=== PATIENT | female | born 1985 | race Caucasian/White ===

== ENCOUNTER 2023-01-21 09:29 | Outpatient (OUT) | payer BC, SELFPAY ==
[2023-01-21 10:03] LABS: Basophils Absolute Auto 0.1 10^3/uL (0.0-0.1); Basophils Percent Auto 0.8 % (0.2-2.0); Eosinophils Absolute Auto 0.1 10^3/uL (0.0-0.7); Eosinophils Percent Auto 1.8 % (0.9-7.0); Hematocrit 40.2 % (36.0-48.0); Hemoglobin 13.7 g/dL (12.0-16.0); Immature Granulocytes Abs Auto 0.01 10^3/uL (0.00-0.03); Immature Granulocytes Pct Auto 0.2 % (0.0-0.5); Lymphocytes Absolute Auto 2.8 10^3/uL (1.2-3.8); Lymphocytes Percent Auto 45.6 % (20.5-60.0); Mean Corpuscular HGB Conc 34.1 g/dL (29.9-35.2); Mean Corpuscular Hemoglobin 30.2 pg (26.7-34.0); Mean Corpuscular Volume 88.7 fL (81.0-99.0); Mean Platelet Volume 9.5 fL (9.5-13.5); Monocytes Absolute Auto 0.4 10^3/uL (0.3-0.8); Neutrophils Absolute Auto 2.7 10^3/uL (1.4-6.5); Neutrophils Percent Auto 44.6 % (43.0-75.0); Platelet Count 297 10^3/uL (150-450); Red Blood Count 4.53 10^6/uL (4.20-5.40); Red Cell Distribution Width 12.4 % (11.0-15.0); White Blood Count 6.1 10^3/uL (4.0-11.0)
[2023-01-21 10:25] LABS: Estimated Average Glucose 100 mg/dL; Glycohemoglobin A1C 5.1 % (4.5-6.2)
[2023-01-21 10:49] LABS: Alanine Aminotransferase 21 U/L (14-59); Albumin Globulin Ratio 1.1; Alkaline Phosphatase 68 U/L (46-116); Anion Gap 12.4; Aspartate Amino Transferase 15 U/L (15-37); BUN Creatinine Ratio 20.5; Bilirubin Total 0.6 mg/dL (0.2-1.0); Calcium 9.2 mg/dL (8.5-10.1); Carbon Dioxide 29.7 mmol/L (21.0-32.0); Chloride 102 mmol/L (98-107); Chol HDL Ratio 2.7; Cholesterol 213 mg/dL (<=200); Estimated GFR (African America >60 (>=60); Estimated GFR (Non-African Ame >60 (>=60); Globulin 3.7 g/dL; Glucose 89 mg/dL (74-106); HDL Cholesterol 78 mg/dL (40-60); Potassium 4.1 mmol/L (3.5-5.1); Sodium 140 mmol/L (136-145); Thyroid Stimulating Hormone 2.088 uIU/mL (0.358-3.740); Total Protein 7.7 g/dL (6.4-8.2); Triglycerides 37 mg/dL (<=150); VLDL CHOLESTEROL 7.4 mg/dL
== END 2023-01-21 09:30 | disposition home or self-care (01) ==
LOC: LAB 09:40
PROVIDERS: PCP Family Medicine; Visit Provider Obstetrics & Gynecology
DX: Z00.00 Encounter for general adult medical examination without abnormal findings (principal)
CPT/HCPCS: 36415; 80053; 80061; 83036; 84443; 85025

== ENCOUNTER 2025-02-10 15:07 | Outpatient (OUT) | payer BC, SELFPAY ==
--- OUTSIDE RECORDS SUMMARY | 2025-02-08 05:29 | XMS_ITS | Continuity of Care Document ---
Author Organization [facility] Address [address] [place] [address] Phone Care Team Providers Care Letter Of Credit Clerk Name Role Phone Shae Lora MD Primary Care Provider Shae Lora MD Attending Provider Care Teams Patient Care Team Team Status: Active Member Role/Relationship Status Dates Shae Lora MD Primary Care Provider Active Patient Care Team Team Status: Inactive Member Role/Relationship Status Dates Shae Lora MD Primary Care Provider Active Start: February 08, 2025 End: February 08, 2025Shae Lora MDAttending ProviderActiveStart: February 08, 2025 End: February 08, 2025 Chief Complaint and Reason for Visit Chief Complaint Admit Date Back Pain February 08, 2025 8 :47am Reason for Visit Admit Date Left-sided chest pain February 08, 2025 8:47am Lumbar pain February 08, 2025 8 :47am Right medial knee pain February 08 8:47am Wellness examination February 08, 2025 8:47am Social History Smoking Status Status Start Date End Date Date of Observa tion Never smoked tobacco (finding) October 08, 2023 11:40am Observation Status Observation Response Date of Response Legal Sex [facility] (finding) [facility] 1984 Problems Active Problems Problem Diagnosis/Recorded Date Onset Date Stat us Attention deficit disorder (ADD) in adult October 07 11:52am Unknown Active Left-sided chest pain February 08, 2025 9:22am Unknow n Active Right medial knee pain February 08, 2025 9:21am Unkno wn Active Hearing loss October 08, 2023 11:54am Unknown Acti ve Wellness examination February 08, 2025 9:16am Unknown Active Lumbar pain February 08, 2025 9:19am Unknown Ac tive Medications Medication Status Dose Units Route Directions Qty Days Refills S tart Date Stop Date End Date Reason(s) Instructions Adherence Dextroamphetamine-Amphetamin e (Adderall Xr) 5 mg capsule,extended release 24hr Discontinued 5 MG PO Daily 30 30 0 October 08, 2023 March 10, 2024 11:51amAttention deficit disorder (ADD) in adultMupirocin 2 % izghaobfPxlyptuunzkl1LOKIZCUBAMDTVYuqog dailyMarch 03, 2024 1:00amOctfrankfort regional medical center 2024 9:00amFreeTextSi application Externally Twice a day; Note: Source Status: Start; Refills: 0; Qty: 22 Gram; Provider: Guido Kaufman EAtomoxetine (Strattera) 40 mg pazugoyXmrfswdluyms03UQFWFnuff367Ldhnwvjw 27th, 2024 1:00am June 28, 2024 12:51pm Vital Signs Vital Reading Result Reference Range Collection Date/Time Height 60 [in_i] February 08, 2025 8:73oyErhddh46.16 [facility] 20[facility] 8:55amHeart Rate95 /uhg23-907Vslfrpl 2024 8:55amBP Ouakvcpb855 mm[Hg]100-140[facility] 2024 8:55amBP Oncakiphl57 mm[Hg]60-100[facility] 2024 8:55amBMI (Body Mass Index)22.4 kg/d8Nuimqxf 2024 8:55am Advance Directives Advance Directive Response Recorded Date/ Time Advance Directives No February 3:14pm Insurance Providers Guarantor Anita Welsh Address [address] [place] [address]Ufsbtkc Info.Home Phone: Coverage Status Update:2025 Payer Group Member ID Coverage Type Subscriber Relationship to Subscriber Effective Date Expiration Date MMO Id: [id number] A Neill Id: [id number] [address] [place] [address] Home Phone: Email: [email or web address] General Hospital [id number] A Blaise Id: [id number] [address] [place] [address] Home Phone: Email: [email or web address] [employer] Ins [employer] Id: [id number] A Blaise Id: [id number] [address] [place] [address] Home Phone: Email: [email or web address] [facility] Id: [id number] A Blaise Id: [id number] [address] [place] [address] Home Phone: Email: [email or web address] For Children - PhiladelphiafHealweather[facility] [email or web address] A Blaise Id: [id number] [address] [place] [address] Home Phone: Email: [email or web address] Encounters Encounter Location(s) Arrival/Admit Date Discharge/Departure Date Discharge/Departure Disposition Provider(s) Departed Physician/ Provider Office Visit -[facility] February 08, 2025 8:47am February 08, 2025 9:27am Discharged to home care or self care (routine discharge) Shae Lora MD Recent Diagnosis Onset Date Admit Date Left-sided chest pain Unknown February 082024 8:47am Lumbar pain Unknown February 08 8:47am Right medial knee pain Unknown January 132024 8:47am Wellness examination Unknown January 8:47am Assessments Diagnosis Onset Date Resolution Status Admit Date Left-sided chest pain acuteOctober 2024 8:47amLumbar painacuteOctober 2024 8:47amRight medial knee painacuteOctober 2024 8:47amWellness examinationacuteOctober 2024 8:47am Plan of Treatment Future Tests Future scheduled test information is unavailable Pending Tests Test Name Ordered Date Scheduled Date ECG 12 lead ECG February 08, 2025 9:22am E[facility] echo transthoracicOctober 2024 9:22amComprehensive Metabolic Panel February 08, 2025 9:16amXR knee RT 4V*February 08, 2025 9:20amXR lumbar spine 2-3V*February 08, 2025 9:18am Future Visits Future appointment information is unavailable Future Procedures Procedure Name Ordered Date Scheduled Date Complete Blood Count Auto Diff February 08 9:16am Lipid PanelOctober 2024 9:16am Future Medications Future medication information is unavailable Patient Instructions Instruction Admit Date Low back pain in adults February 08 8:47am
--- OUTSIDE RECORDS SUMMARY | 2025-02-10 15:13 | XMS_ITS | Clinical Summary ---
Author Organization [facility] Address [id number] [address] [place] [address] Care Team Providers Care Records Coordinator Name Role Phone Shae Lora MD Primary Care Provider Allergies Active AllergyReactionsCriticalityNoted UpztSvdfyzluQhmmheqmwkt14/06/2022 Medications MedicationSigDispense QuantityRefillsLast FilledStart DateEnd DateStatus PNV no.95/ferrous fum/folic ac ( ORAL) Take 1 tablet by mouth daily.Active dextroamphetamine-amphetamine (ADDERALL) 5 mg tablet Take 5 mg by mouth in the morning.Active promethazine (PHENERGAN) 12.5 mg tablet Take 12.5 mg by mouth every 4 (four) hours as needed for nausea or vomiting. Active Active Problems No known active problems Family History Medical HistoryRelationNameCommentsAlcohol abuseFatherArthritisFatherAsthma FatherColon cancerFatherDiabetesFatherHeart diseasePaternal GrandfatherColon cancerPaternal GrandmotherRelationNameStatusCommentsFatherPaternal Grandfather Paternal Grandmother Social History Tobacco UseTypesPacks/DayYears UsedDateSmoking Tobacco: NeverSmokeless Tobacco: NeverAlcohol UseStandard Drinks/WeekCommentsNot Currently0 (1 standard drink = 0.6 oz pure alcohol)CommentsNoSex and Gender InformationValueDate RecordedSex Assigned at BirthNot on fileLegal FhfXyfkkx03/12/2022 2:33 PM EDT Gender IdentityNot on fileSexual OrientationNot on file Last Filed Vital Signs Vital SignReadingTime TakenCommentsBlood Vcjjnopb763/5907/03/2022 11:43 AM EDT Arhyz4019/03/2022 11:43 AM EDTTemperature--Respiratory Rate--Oxygen Saturation-- Inhaled Oxygen Concentration--Cvrkro72.8 kg (120 lb 13 oz)10/23/2021 11:43 AM JGKBlufdp546.4 cm (5')10/23/2021 11:43 AM EDTBody Mass Index23.5907 11:43 AM EDT Plan of Treatment Health MaintenanceDue DateLast DoneCommentsDepression Aewoeebbb17/15/1997Tobacco Qwfqlzgse94/15/1997Adult BMI Xwsolgdml46/15/2003DTaP,Tdap and Td Vaccines (1 - Tdap)02/27/2004Pap Smear2006Influenza Xijbwgs6112/13/2024 Medical Devices Not on file Insurance Care Teams Team MemberRelationshipSpecialtyStart DateEnd Date Shae Lora MD [facility] [place] [address] PCP - GeneralFamily Medicine10/23/21
--- OUTSIDE RECORDS SUMMARY | 2025-02-10 15:13 | XMS_ITS | Clinical Summary ---
Author Organization [facility] Address [address] [facility] [place] [address] Care Team Providers Care Courier Driver Name Role Phone Shae Lora MD Primary Care Provider [phone] Social History Tobacco UseTypesPacks/DayYears UsedDateSmoking Tobacco: Never Assessed CommentsUnknownSex and Gender InformationValueDate RecordedSex Assigned at Not on fileLegal IgsJxowdl03/01/2023 8:34 PM EDTGender IdentityNot on fileSexual OrientationNot on file Last Filed Vital Signs Vital SignReadingTime TakenCommentsBlood Dbarvsex718/6004/10/2022 12:00 PM EST Pulse--Temperature--Respiratory Rate--Oxygen Saturation--Inhaled Oxygen Concentration--Yfctce96.9 kg (121 lb 1.9 oz)04/10/2022 12:00 PM GKYJgodwj483.4 cm (5')04/10/2022 12:00 PM ESTBody Mass Index23.6504/10/2022 12:00 PM EST Plan of Treatment DateTypeDepartmentCare Team (Latest Contact Info)Ifnodjknvci21/04/2025 11:30 AM ESTProcedure Visit [facility] [place] [facility] [address] [phone] Juan Francisco Melgoza DO [address] [place], [place] [id number] Insurance * Guarantor: Anita Welsh AAccount TypeRelation to PatientDate of BirthPhone Billing AddressPersonal/JuojvxBeyi[address] [place] [address] Care Teams Team MemberRelationshipSpecialtyStart DateEnd Date Shae Lora MD PCP - GeneralFamily Medicine01/12/24
--- NOTE | 2025-02-10 15:19 | XR_ITS ---
The [place] [id number] Patient Name: DALILA LAFLEUR MRN: [id number] date: 1985 Sex: F Assigned Patient [facility] Current Patient Location: CARD Accession/Order Number: [id number] Exam Date: 02/10/2025 15:30 Report Date: 02/11/2025 10:32 At the request of: MANOLO RAYO MD Procedure: XR knee RT 4V LUMBAR SPINE - 2 views COMPARISON: None CLINICAL DATA: Chronic low back and SI joint pain, without injury. AP and lateral standing views were obtained. There is dextroscoliotic curvature. There is approximately 3 mm of anterolisthesis of L4 and L5. No acute fractures are identified. There is minor disc space narrowing towards the right at L3-4 and L4-5. There is mild lower lumbar facet hypertrophy. The SI joints are intact and show mild sclerosis. No paraspinal soft tissue abnormalities are visualized. XR/XR knee RT 4V IMPRESSION: SCOLIOSIS AND MINOR DEGENERATIVE CHANGES. RIGHT KNEE - 4 views COMPARISON: None CLINICAL DATA: Medial right knee pain when ambulating over the past month. No injury. Weightbearing AP, lateral, tunnel and patellar views were obtained. There is no acute fracture or dislocation. No patellar subluxation is seen. There is minimal medial tibiofemoral joint compartment narrowing. No hypertrophy is visualized. There is no knee effusion or focal soft tissue swelling. IMPRESSION: NO ACUTE BONY FINDINGS. Impression dictated by: Parisa Sanderson M.D. 02/11/2025 10:32 AM Dictation Location: [place] [address] Electronically authenticated by: [id number] Y Date: 02/11/2025 10:32
--- NOTE | 2025-02-10 15:20 | XR_ITS ---
[facility] [place] [id number] Patient Name: DALILA LAFLEUR MRN: [id number] date: 1985 Sex: F Assigned Patient Location: [facility] Current Patient Location: CARD Accession/Order Number: [id number] Exam Date: 02/10/2025 15:30 Report Date: 02/11/2025 10:32 At the request of: MANOLO RAYO MD Procedure: XR knee RT 4V LUMBAR SPINE - 2 views COMPARISON: None CLINICAL DATA: Chronic low back and SI joint pain, without injury. AP and lateral standing views were obtained. There is dextroscoliotic curvature. There is approximately 3 mm of anterolisthesis of L4 and L5. No acute fractures are identified. There is minor disc space narrowing towards the right at L3-4 and L4-5. There is mild lower lumbar facet hypertrophy. The SI joints are intact and show mild sclerosis. No paraspinal soft tissue abnormalities are visualized. XR/XR lumbar spine 2-3V IMPRESSION: SCOLIOSIS AND MINOR DEGENERATIVE CHANGES. RIGHT KNEE - 4 views COMPARISON: None CLINICAL DATA: Medial right knee pain when ambulating over the past month. No injury. Weightbearing AP, lateral, tunnel and patellar views were obtained. There is no acute fracture or dislocation. No patellar subluxation is seen. There is minimal medial tibiofemoral joint compartment narrowing. No hypertrophy is visualized. There is no knee effusion or focal soft tissue swelling. IMPRESSION: NO ACUTE BONY FINDINGS. Impression dictated by: Parisa Sanderson M.D. 02/11/2025 10:32 AM Dictation Location: [place] [address] Electronically authenticated by: [id number] Y Date: 02/11/2025 10:32
== END 2025-02-10 15:08 | disposition home or self-care (01) ==
PROVIDERS: PCP Family Medicine; Visit Provider Family Medicine
DX: M54.50 Low back pain, unspecified (principal); M25.561 Pain in right knee; M41.9 Scoliosis, unspecified
CPT/HCPCS: 72100; 73564

== ENCOUNTER 2025-02-14 07:13 | Outpatient (OUT) | payer BC, SELFPAY ==
--- OUTSIDE RECORDS SUMMARY | 2025-02-14 07:18 | XMS_ITS | Clinical Summary ---
Author Organization [facility] Address [address] [facility] [address] [place] [address] Care Team Providers Care Scientific Photographer Name Role Phone Shae Lora MD Primary Care Provider [phone] Social History Tobacco UseTypesPacks/DayYears UsedDateSmoking Tobacco: Never Assessed CommentsUnknownSex and Gender InformationValueDate RecordedSex Assigned at Not on fileLegal RdyUlpcyu64/01/2023 8:34 PM EDTGender IdentityNot on fileSexual OrientationNot on file Last Filed Vital Signs Vital SignReadingTime TakenCommentsBlood Lxoyqdlm304/6004/10/2022 12:00 PM EST Pulse--Temperature--Respiratory Rate--Oxygen Saturation--Inhaled Oxygen Concentration--Leugyn36.9 kg (121 lb 1.9 oz)04/10/2022 12:00 PM PMYUirhwh816.4 cm (5')04/10/2022 12:00 PM ESTBody Mass Index23.6504/10/2022 12:00 PM EST Plan of Treatment DateTypeDepartmentCare Team (Latest Contact Info)Wbuvefhnura57/04/2025 11:30 AM ESTProcedure Visit [facility] [place] [facility] [address] [place] [phone] Juan Francisco Melgoza DO [address] [place], [place] [id number] Insurance * Guarantor: Anita Welsh AAccount TypeRelation to PatientDate of BirthPhone Billing AddressPersonal/MierruFjbp1985 [address] [place] [address] Care Teams Team MemberRelationshipSpecialtyStart DateEnd Date Shae Lora MD PCP - GeneralFamily Medicine01/12/24
[2025-02-14 07:59] LABS: Hematocrit 38.1 % (36.0-48.0); Hemoglobin 12.9 g/dL (12.0-16.0); Immature Granulocytes Abs Auto 0.01 10^3/uL (0.00-0.03); Immature Granulocytes Pct Auto 0.2 % (0.0-0.5); Lymphocytes Absolute Auto 2.4 10^3/uL (1.2-3.8); Mean Corpuscular HGB Conc 33.9 g/dL (29.9-35.2); Mean Corpuscular Hemoglobin 30.3 pg (26.7-34.0); Mean Corpuscular Volume 89.4 fL (81.0-99.0); Platelet Count 277 10^3/uL (150-450); Red Blood Count 4.26 10^6/uL (4.20-5.40); White Blood Count 4.4 10^3/uL (4.0-11.0)
[2025-02-14 08:16] LABS: Alanine Aminotransferase 16 U/L (14-59); Albumin Globulin Ratio 1.1; Albumin Level 3.8 g/dL (3.4-5.0); Alkaline Phosphatase 43 U/L (46-116); Anion Gap 9.8; Aspartate Amino Transferase 15 U/L (15-37); Blood Urea Nitrogen 14.0 mg/dL (7.0-18.0); Calcium 8.9 mg/dL (8.5-10.1); Carbon Dioxide 29.2 mmol/L (21.0-32.0); Chloride 105 mmol/L (98-107); Cholesterol 178 mg/dL (<=200); Estimated GFR (African America >60 (>=60 mL/min/1.73m^2); Estimated GFR (Non-African Ame >60 (>=60 mL/min/1.73m^2); Globulin 3.4 g/dL; Glucose 103 mg/dL (74-106); HDL Cholesterol 53 mg/dL (40-60); Potassium 4.0 mmol/L (3.5-5.1); Sodium 140 mmol/L (136-145); Total Protein 7.2 g/dL (6.4-8.2); Triglycerides 78 mg/dL (<=150); VLDL CHOLESTEROL 15.6 mg/dL
== END 2025-02-14 07:14 | disposition home or self-care (01) ==
PROVIDERS: PCP Family Medicine; Visit Provider Family Medicine
DX: Z00.00 Encounter for general adult medical examination without abnormal findings (principal)
CPT/HCPCS: 36415; 80053; 80061; 85025

== ENCOUNTER 2025-02-15 08:28 | Outpatient (OUT) | payer BC, SELFPAY ==
--- OUTSIDE RECORDS SUMMARY | 2025-02-15 08:31 | XMS_ITS | Clinical Summary ---
Author Organization [facility] Address [address] [facility] [place] [address] Care Team Providers Care Code Inspector Name Role Phone Shae Lora MD Primary Care Provider [phone] Social History Tobacco UseTypesPacks/DayYears UsedDateSmoking Tobacco: Never Assessed CommentsUnknownSex and Gender InformationValueDate RecordedSex Assigned at Not on fileLegal NarTeenje10/01/2023 8:34 PM EDTGender IdentityNot on fileSexual OrientationNot on file Last Filed Vital Signs Vital SignReadingTime TakenCommentsBlood Opnwrkxu853/6004/10/2022 12:00 PM EST Pulse--Temperature--Respiratory Rate--Oxygen Saturation--Inhaled Oxygen Concentration--Mafakq90.9 kg (121 lb 1.9 oz)04/10/2022 12:00 PM IUKHkgirk796.4 cm (5')04/10/2022 12:00 PM ESTBody Mass Index23.6504/10/2022 12:00 PM EST Plan of Treatment DateTypeDepartmentCare Team (Latest Contact Info)Kutfqtlvuvq67/04/2025 11:00 AM ESTProcedure Visit [facility] [place] [facility] [address] [place] [phone] Juan Francisco Melgoza DO [address] [place], [place] [id number] Insurance * Guarantor: Anita Welsh AAccount TypeRelation to PatientDate of BirthPhone Billing AddressPersonal/FaxqmmOvwy1985 [address] [place] [address] Care Teams Team MemberRelationshipSpecialtyStart DateEnd Date Shae Lora MD PCP - GeneralFamily Medicine01/12/24
--- OUTSIDE RECORDS SUMMARY | 2025-02-15 08:31 | XMS_ITS | Clinical Summary ---
Author Organization [facility] Address [id number] [address] [place] [address] Care Team Providers Care Lime Filter Operator Name Role Phone Shae Lora MD Primary Care Provider [phone] Allergies Active AllergyReactionsCriticalityNoted AinuKgaqmnefDwytygscrxi28/06/2022 Medications MedicationSigDispense QuantityRefillsLast FilledStart DateEnd DateStatus PNV [...] InformationValueDate RecordedSex Assigned at BirthNot on fileLegal DajPqbrxx74/12/2022 2:33 PM EDT Gender IdentityNot on fileSexual OrientationNot on file Last Filed Vital Signs Vital SignReadingTime TakenCommentsBlood Xbxevsob432/5907/03/2022 11:43 AM EDT Iutrw4432/03/2022 11:43 AM EDTTemperature--Respiratory Rate--Oxygen Saturation-- Inhaled Oxygen Concentration--Ujlvzw60.8 kg (120 lb 13 oz)10/23/2021 11:43 AM DKXVmzvlh596.4 cm (5')10/23/2021 11:43 AM EDTBody Mass Index23.5907 11:43 AM EDT Plan of Treatment Health MaintenanceDue DateLast DoneCommentsDepression Eaxqnzjym65/15/1997Tobacco Iambfuylk69/15/1997Adult BMI Fspmjoqqu01/15/2003DTaP,Tdap and Td Vaccines (1 - Tdap)02/27/2004Pap Smear2006Influenza Vsieclb5212/13/2024 Medical Devices Not on file Insurance Care Teams Team MemberRelationshipSpecialtyStart DateEnd Date Shae Lora MD [facility] [place] [address] PCP - GeneralFamily Medicine10/23/21
--- NOTE | 2025-02-15 08:34 | ECG_ITS ---
The [facility] Test Date: 2025-02-15 Pat Name: DALILA LAFLEUR Department: Room: - Gender: Female Windows Systems Architect: : 1985 Requested By: MANOLO RAYO Order Number: [id number] Reading MD: TATI GOODE Measurements Intervals [place] Rate: 77 P: 69 FL: 127 QRS: 85 QRSD: 71 T: 62 QT: 363 QTc: 411 Interpretive Statements SINUS RHYTHM No previous ECG available for comparison Electronically Signed On 02-15-2025 9:20:30 EST by TATI GOODE
--- NOTE | 2025-02-15 08:34 | CA_ITS ---
Patient Name: DALILA LAFLEUR MR#: [id number] : 1985 Exam Date: 02/15/2025 Ordering Doctor: DR MANOLO RAYO M.D. ECHOCARDIOGRAM REPORT PROCEDURE: CA ECHO DOPPLER COMPLETE INDICATIONS: Left sided chest pain COMPARISON: None. DESCRIPTION: COMPLETE ECHOCARDIOGRAM Real-time transthoracic echocardiography with 2D, M-mode, spectral and color flow Doppler performed. QUALITY: Technical quality was good. LEFT VENTRICLE: Normal chamber size. Normal left ventricular wall thickness. Estimated left ventricular ejection fraction is 55-60%. LV EF: Normal left ventricular ejection fraction, (>55%). DIASTOLIC: Normal diastolic function. ATRIAL SEPTUM: Visually appears intact. LEFT ATRIUM: Normal chamber size. RIGHT ATRIUM: Normal chamber size. RIGHT VENTRICLE: Normal chamber size. Normal right ventricular systolic function. TRICUSPID VALVE: Normal mobility and thickness. No stenosis with trivial regurgitation. No evidence of pulmonary hypertension. RVSP 25 mmHg MITRAL VALVE: Normal mobility and thickness. No evidence of mitral valve stenosis. There is no mitral annular calcification. No mitral regurgitation. AORTIC VALVE: Not clearly visualized. Leaflet mobility appears normal. No evidence of aortic valve stenosis. No aortic regurgitation. AORTIC ROOT: Normal diameter and appearance, measuring 2.7 cm. PULMONIC VALVE: Not well visualized. PERICARDIUM: No evidence of pericardial effusion. IVC: Collapses with inspiration. PLEURA: CONCLUSION: 1. The left ventricle is normal in size and exhibits normal systolic function. Estimated LVEF is 55 to 60%. 2. Normal right ventricular size and systolic function. 3. No significant valvular dysfunction. 4. Normal right-sided pressures. 5. The aortic valve is not well-visualized but appears to function well. 6. The pulmonic valve is not well-visualized. Adult Echocardiography Procedure Report Left Ventricle LVEDD (3.7 - 5.6 cm): 4.48 cm LVESD (2.2 - 4.0 cm): 3.16 cm LVIVS thickness (0.6 - 1.2 cm): 0.57 cm LVPW thickness (0.5 - 1.0 cm): 0.67 cm e': 0.15 m/s E - e': 5.42 LVOT Max Gradient: 2.32 mm[Hg] LVOT Area (cm2): 0.76 m/s Peak Velocity (LVOT): 0.76 m/s Mean Velocity (LVOT): 0.57 m/s LVOT Diameter 2.19 cm Left Ventricular Ejection Fraction: 55-60 % Left Atrium LA Volume Index (2D A2C): 29.83 ml/m2 Left Atrium Systolic Dimension: 2.72 cm Mitral Valve MV E to A Ratio: 1.26 Mitral Valve A-Wave Peak Velocity: 0.64 m/s Mitral Valve E-Wave Peak Velocity: 0.81 m/s Right Ventricle Aorta AO Root Diam: 2.67 cm Aortic Valve AoV Area (Peak Marc): 2.98 cm2, 2.98 cm2 AoV Area (VTI): 3.06 cm2, 3.06 cm2 Peak Velocity(Antegrade Flow): 0.96 m/s Peak Gradient(Antegrade Flow): 3.69 mm[Hg] Mean Velocity(Antegrade Flow): 0.66 m/s Mean Gradient(Antegrade Flow): 2.08 mm[Hg] Velocity Time Integral: 20.48 cm Tricuspid Valve Peak Velocity (Regurgitant Flow): 2.36 m/s Pulmonic Valve Peak Velocity: 0.70 m/s Peak Gradient: 1.96 mm[Hg] Right Atrium Right Atrium Systolic Pressure: 25.10 ml, 25.10 ml Dictated by: Renard Silva M.D. on 02/15/2025 at 21:14 Approved by: Renard Silva M.D. on 02/15/2025 at 21:19
== END 2025-02-15 08:29 | disposition home or self-care (01) ==
LOC: CARD 08:28
PROVIDERS: PCP Family Medicine; Visit Provider Family Medicine
DX: R07.9 Chest pain, unspecified (principal); Z01.419 Encounter for gynecological examination (general) (routine) without abnormal findings
CPT/HCPCS: 88175; 93005; 93306

== ENCOUNTER 2025-02-15 19:00 | Outpatient (REF) | payer BC, SELFPAY ==
--- OUTSIDE RECORDS SUMMARY | 2025-02-15 11:00 | XMS_ITS | Encounter Summary ---
Author Organization [facility] Address [address] [facility] [place] [address] Care Team Providers Care Assignment Manager Name Role Phone Shae Lora MD Primary Care Provider [phone] Reason for Visit * ReasonCommentsGynecologic Exam Encounter Details DateTypeDepartmentCare Team (Latest Contact Info)Lgsofeqtlur04/04/2025 11:00 AM ESTProcedure Visit [facility] [address] [place] [place] [phone] Juan Francisco Melgoza DO [address] [place]is Gtz, [facility]11 Well woman exam with routine gynecological exam Social History Tobacco UseTypesPacks/DayYears UsedDateSmoking Tobacco: Never Assessed CommentsUnknownSex and Gender InformationValueDate RecordedSex Assigned at Not on fileLegal MyoYgakgb39/01/2023 8:34 PM EDTGender IdentityNot on fileSexual OrientationNot on filedocumented as of this encounter Last Filed Vital Signs Vital SignReadingTime TakenCommentsBlood Akwzzfrv992/6802/15/2025 11:40 AM EST Pulse--Temperature--Respiratory Rate--Oxygen Saturation--Inhaled Oxygen Concentration--Lxitmc89 kg (116 lb 12.8 oz)02/15/2025 11:40 AM IHDKjipas592.9 cm (5' 1 )02/15/2025 11:40 AM ESTBody Mass Index22.0702/15/2025 11:40 AM EST documented in this encounter Progress Notes * Parisa Garcia LPN - 02/15/2025 11:00 AM EST Reason for Appointment: Patient ID: Anita Welsh is a 39 y.o. female who presents for Gynecologic Exam Patient presents today for Annual Exam. MEDICATIONS No current outpatient medications ALLERGIES Allergies Allergen Reactions Penicillins Unknown PROBLEMS Active Ambulatory Problems Diagnosis Date Noted No Active Ambulatory Problems Resolved Ambulatory Problems Diagnosis Date Noted No Resolved Ambulatory Problems No Additional Past Medical History HISTORY PAST MEDICAL HISTORY SOCIAL HISTORY History reviewed. No pertinent past medical history. Social History Tobacco Use Smoking status: Not on file Smokeless tobacco: Not on file Substance Use Topics Alcohol use: Not on file Drug use: Not on file FAMILY HISTORY No family history on file. SURGICAL HISTORY Past Surgical History: Procedure Laterality Date APPENDECTOMY 2004 SECTION, LOW TRANSVERSE 2021 SALPINGECTOMY Bilateral REVIEW OF SYSTEMS Review of Systems: Review of Systems Constitutional: Negative. HENT: Negative. Eyes: Negative. Respiratory: Negative. Cardiovascular: Negative. Gastrointestinal: Negative. Genitourinary: Negative. Musculoskeletal: Negative. Skin: Negative. Neurological: Negative. All other systems reviewed and are negative. Hematological: Negative. Endocrine: Negative. Allergic/Immunologic: Negative. OBJECTIVE Objective: Physical Exam Constitutional: Appearance: Normal appearance. She is well-developed. Genitourinary: Vulva normal. Cardiovascular: Rate and Rhythm: Normal rate and regular rhythm. Pulmonary: Effort: Pulmonary effort is normal. Breath sounds: Normal breath sounds. Abdominal: General: Bowel sounds are normal. There is no distension. Palpations: Abdomen is soft. Tenderness: There is no abdominal tenderness. There is no guarding or rebound. Musculoskeletal: General: No swelling. Normal range of motion. Right lower leg: No edema. Left lower leg: No edema. Neurological: Mental Status: She is alert and oriented to person, place, and time. Skin: General: Skin is warm and dry. Psychiatric: Mood and Affect: Mood normal. Behavior: Behavior normal. Vitals and nursing note reviewed. Exam conducted with a senior bioinformatics scientist present. Vitals: Estimated body mass index is 22.07 kg/m?? as calculated from the following: Height as of this encounter: 5' 1 . Weight as of this encounter: 116 lb 12.8 oz. BP: 100/68 No LMP recorded. ASSESSMENT & PLAN ICD-10-CM 1. Well woman exam with routine gynecological exam Z01.419 Pap Smear HPV DNA probe, amplified Orders Placed This Encounter Procedures HPV DNA probe, amplified Annual Wellness Exam: Patient presents today for routine annual exam. Patient states she has complaints of hormonal changes, discussed mood changes and not being able to sleep. Pt questioned having labs drawn, discussed adding effexor for mood changes and pt considering. Patients vitals were reviewed and within normal limits. Growth and development is noted to be appropriate for age. Menstrual history is noted to be regular with no concerns reported. No mental health concerns was expressed. Pap Smear: Speculum was inserted into the vagina and pap was obtained without difficulty. HPV testing was performed per age guideline. Patient was advised that pap results could take anywhere from 7 to 10 days to receive and our office will reach out to the patient with those once we have them. Patient can also view results via Personal Estate Manager. I reinforced importance of condom use for STI prevention. Patient declined cultures to be performed with today's visit. Breast Exam: Upon examination, clinical breast exam was noted to be normal. Patient was counseled on breast self-awareness, including the importance of knowing what is normal for her own breasts and promptly reporting any changes such as new lumps, skin dimpling, nipple discharge, or pain. Screening mammogram recommended annually beginning at age 40 or earlier if risk factors are present. Discussed signs and symptoms of breast cancer and when to seek medical attention. Answered all patient questions. Contraceptive Counseling (if applicable): Patient is currently using tubal as a form of contraceptive. Follow Up: Patient is to return to our office in one year for annual exam unless needed otherwise. Documented by Parisa Garcia LPN on behalf of: Juan Francisco Melgoza DO documented in this encounter Plan of Treatment NameTypePriorityAssociated DiagnosesOrder SchedulePap SmearPathology and CytologyRoutine Well woman exam with routine gynecological exam Ordered: 02/15/2025HPV DNA probe, amplifiedMicrobiologyRoutine Well woman exam with routine gynecological exam Ordered: 02/15/2025documented as of this encounter Visit Diagnoses Diagnosis Well woman exam with routine gynecological exam Routine gynecological examination documented in this encounter Care Teams Team MemberRelationshipSpecialtyStart DateEnd Date Shae Lora MD PCP - GeneralFamily Medicine01/12/24documented as of this encounter
--- OUTSIDE RECORDS SUMMARY | 2025-02-15 19:03 | XMS_ITS | Encounter Summary ---
Author Organization [facility] Address [address] [place] [address] Care Team Providers Care Phone Engineer Name Role Phone Shae Lora MD Primary Care Provider [phone] Encounter Details DateTypeDepartmentCare Team (Latest Contact Info)Fuvddkfnktk30/04/2025amboo flowsheet [facility] [address] [place] [phone] Juan Francisco Melgoza, [address] Bel[place] Gtz, [facility]11 Social History Tobacco UseTypesPacks/DayYears UsedDateSmoking Tobacco: Never Assessed CommentsUnknownSex and Gender InformationValueDate RecordedSex Assigned at Not on fileLegal RwcMqsvjp20/01/2023 8:34 PM EDTGender IdentityNot on fileSexual OrientationNot on filedocumented as of this encounter Plan of Treatment Not on file documented as of this encounter Visit Diagnoses Not on filedocumented in this encounter Care Teams Team MemberRelationshipSpecialtyStart DateEnd Date Shae Lora MD PCP - GeneralFamily Medicine01/12/24documented as of this encounter
--- OUTSIDE RECORDS SUMMARY | 2025-02-15 19:03 | XMS_ITS | Clinical Summary ---
Author Organization [employer] Address [id number] [address] [place] [address] Care Team Providers Care Director Of Student Financial Aid Name Role Phone Shae Lora MD Primary Care Provider [phone] Allergies Active AllergyReactionsCriticalityNoted LlkiTwnfbukdQstoqshylqr01/06/2022 Medications MedicationSigDispense QuantityRefillsLast FilledStart DateEnd DateStatus PNV [...] InformationValueDate RecordedSex Assigned at BirthNot on fileLegal PuiNflhbi87/12/2022 2:33 PM EDT Gender IdentityNot on fileSexual OrientationNot on file Last Filed Vital Signs Vital SignReadingTime TakenCommentsBlood Hnfowixz218/5907/03/2022 11:43 AM EDT Hjeju6464/03/2022 11:43 AM EDTTemperature--Respiratory Rate--Oxygen Saturation-- Inhaled Oxygen Concentration--Cvgftj53.8 kg (120 lb 13 oz)10/23/2021 11:43 AM CKSKymchd196.4 cm (5')10/23/2021 11:43 AM EDTBody Mass Index23.5907 11:43 AM EDT Plan of Treatment Health MaintenanceDue DateLast DoneCommentsDepression Ulxylobwi32/15/1997Tobacco Jitcoruxl46/15/1997Adult BMI Yefehebix70/15/2003DTaP,Tdap and Td Vaccines (1 - Tdap)02/27/2004Pap Smear2006Influenza Qekjzow0812/13/2024 Medical Devices Not on file Insurance Care Teams Team MemberRelationshipSpecialtyStart DateEnd Date Shae Lora MD [facility] [place] [address] PCP - GeneralFamily Medicine10/23/21
--- OUTSIDE RECORDS SUMMARY | 2025-02-15 19:03 | XMS_ITS | Clinical Summary ---
Author Organization [facility] Address [address] [facility] [place] [address] Care Team Providers Care Bench Worker Helper Name Role Phone Shae Lora MD Primary Care Provider [phone] Allergies Active AllergyReactionsCriticalityNoted DzxrTtfjycptKvllnwuweizFldydtm61/06/2022 Medications No known medications Encounters DateTypeDepartmentCare XkumHjmgfctivqh03/04/2025 11:00 AM ESTProcedure Visit [facility] [address] [place] [address] Juan Francisco Melgoza DO Well woman exam with routine gynecological exam02/15/2025amboo flowsheet [facility] [address] [place] [address] Juan Francisco Melgoza DO from Last 3 Months Social History Tobacco UseTypesPacks/DayYears UsedDateSmoking Tobacco: Never Assessed CommentsUnknownSex and Gender InformationValueDate RecordedSex Assigned at Not on fileLegal CbtRvbynw50/01/2023 8:34 PM EDTGender IdentityNot on fileSexual OrientationNot on file Last Filed Vital Signs Vital SignReadingTime TakenCommentsBlood Zoyaragd216/6802/15/2025 11:40 AM EST Pulse--Temperature--Respiratory Rate--Oxygen Saturation--Inhaled Oxygen Concentration--Plpprd92 kg (116 lb 12.8 oz)02/15/2025 11:40 AM SMFDddbpn288.9 cm (5' 1 )02/15/2025 11:40 AM ESTBody Mass Index22.0702/15/2025 11:40 AM EST Plan of Treatment Not on file Insurance Care Teams Team MemberRelationshipSpecialtyStart DateEnd Date Shae Lora MD PCP - GeneralFamily Medicine01/12/24
== END 2025-02-15 19:01 | disposition home or self-care (01) ==
LOC: LAB 19:00
PROVIDERS: PCP Family Medicine; Visit Provider Physician Assistant
DX: Z01.419 Encounter for gynecological examination (general) (routine) without abnormal findings (principal)
CPT/HCPCS: 88175

== ENCOUNTER 2025-02-22 08:49 | Outpatient (RCR) | payer BC, SELFPAY | END 2025-04-01 06:54 | disposition home or self-care (01) | LOC: PT 08:49 | PROVIDERS: PCP Family Medicine; Visit Provider Family Medicine | DX: M25.561 Pain in right knee (principal); M54.50 Low back pain, unspecified | CPT/HCPCS: 20561; 97014; 97110; 97140; 97161 ==

== ENCOUNTER 2025-04-13 08:40 | Outpatient (OUT) | payer BC, OTHER, SELFPAY ==
--- OUTSIDE RECORDS SUMMARY | 2025-04-13 08:45 | XMS_ITS | Clinical Summary ---
Author Organization [employer] Address [id number] [address] [place] [address] Care Team Providers Care Dental Associate Name Role Phone Shae Lora MD Primary Care Provider [phone] Allergies Active AllergyReactionsCriticalityNoted UdlyAktnylyySevbhozwcdh61/06/2022 Medications MedicationSigDispense QuantityRefillsLast FilledStart DateEnd DateStatus PNV [...] InformationValueDate RecordedSex Assigned at BirthNot on fileLegal BgoClwwkk99/12/2022 2:33 PM EDT Gender IdentityNot on fileSexual OrientationNot on file Last Filed Vital Signs Vital SignReadingTime TakenCommentsBlood Xjqyxhkd051/5907/03/2022 11:43 AM EDT Vfome0334/03/2022 11:43 AM EDTTemperature--Respiratory Rate--Oxygen Saturation-- Inhaled Oxygen Concentration--Ukcxjd27.8 kg (120 lb 13 oz)10/23/2021 11:43 AM LLYVpfwxb887.4 cm (5')10/23/2021 11:43 AM EDTBody Mass Index23.5907 11:43 AM EDT Plan of Treatment Health MaintenanceDue DateLast DoneCommentsDepression Lydhpdxry72/15/1997Tobacco Sgimaebmp40/15/1997Adult BMI Omxcnnyrq62/15/2003DTaP,Tdap and Td Vaccines (1 - Tdap)02/27/2004Pap Smear2006Influenza Pnrlgls9412/13/2024 Medical Devices Not on file Insurance Care Teams Team MemberRelationshipSpecialtyStart DateEnd Date Shae Lora MD [facility] [place] [address] PCP - GeneralFamily Medicine10/23/21
--- OUTSIDE RECORDS SUMMARY | 2025-04-13 08:45 | XMS_ITS | Encounter Summary ---
Author Organization [facility] Address [address] [place] [address] Care Team Providers Care Retail Merchandising Specialist Name Role Phone Shae Lora MD Primary Care Provider [phone] Encounter Details DateTypeDepartmentCare Team (Latest Contact Info)Rzcjyxiqina35/30/2025Telephone [facility] [address] [facility] [place] [address] Susana Augustine LPN [address] [place] [address] Social History Tobacco UseTypesPacks/DayYears UsedDateSmoking Tobacco: Never Assessed CommentsUnknownSex and Gender InformationValueDate RecordedSex Assigned at Not on fileLegal LljNllwiv77/01/2023 8:34 PM EDTGender IdentityNot on fileSexual OrientationNot on filedocumented as of this encounter Miscellaneous Notes * Telephone Encounter - Susana Augustine LPN - 04/12/2025 3:25 PM EST Pt called wanting to get hormones check. I told her that we could do that. Orders faxed to [facility]. documented in this encounter Plan of Treatment DateTypeDepartmentCare Team (Latest Contact Info)Qhdrkbmnjih44/28/2026 8:50 AM ESTOffice Visit [facility] [address] [place] [address] Jasmyne Welsh PA [address] [place] [address] NameTypePriorityAssociated DiagnosesOrder ScheduleEstradiolLabRoutine Hormone disorder Expected: 04/12/2025 (Approximate), Expires: 04/12/2026EstroneLabRoutine Hormone disorder Expected: 04/12/2025 (Approximate), Expires: 04/12/2026ortisol, freeLabRoutine Hormone disorder Expected: 04/12/2025 (Approximate), Expires: 04/12/2026DHEA-sulfateLabRoutine Hormone disorder Expected: 04/12/2025 (Approximate), Expires: 04/12/2026Sex hormone binding globulinLabRoutine Hormone disorder Expected: 04/12/2025 (Approximate), Expires: 04/12/2026Insulin, totalLabRoutine Hormone disorder Expected: 04/12/2025 (Approximate), Expires: 04/12/2026Serotonin serumLabRoutine Hormone disorder Expected: 04/12/2025 (Approximate), Expires: 04/12/2026TSHLabRoutine Hormone disorder Expected: 04/12/2025 (Approximate), Expires: 04/12/2026T4, freeLabRoutine Hormone disorder Expected: 04/12/2025 (Approximate), Expires: 04/12/2026T3, reverseLabRoutine Hormone disorder Expected: 04/12/2025 (Approximate), Expires: 04/12/2026ProgesteroneLabRoutine Hormone disorder Expected: 04/12/2025 (Approximate), Expires: 04/12/2026Vitamin D 1,25 dihydroxy LabRoutine Hormone disorder Expected: 04/12/2025 (Approximate), Expires: 04/12/2026FerritinLabRoutine Hormone disorder Expected: 04/12/2025 (Approximate), Expires: 04/12/2026T3, freeLabRoutine Hormone disorder Expected: 04/12/2025 (Approximate), Expires: 04/12/2026ThyroglobulinLabRoutine Hormone disorder Expected: 04/12/2025 (Approximate), Expires: 04/12/2026Thyroglobulin AntibodyLab Routine Hormone disorder Expected: 04/12/2025 (Approximate), Expires: 04/12/2026Thyroid peroxidase antibodyLabRoutine Hormone disorder Expected: 04/12/2025 (Approximate), Expires: 04/12/20268468B6UupNdalqja Hormone disorder Expected: 04/12/2025 (Approximate), Expires: 04/12/2026TESTOSTERONE, FREELab Routine Hormone disorder Expected: 04/12/2025 (Approximate), Expires: 04/12/2026Testosterone, free, total LabRoutine Hormone disorder Expected: 04/12/2025 (Approximate), Expires: 04/12/2026Hemoglobin T4uRfvUuziotj Hormone disorder Expected: 04/12/2025 (Approximate), Expires: 04/12/2026Glucose, randomLabRoutine Hormone disorder Expected: 04/12/2025 (Approximate), Expires: 04/12/2026-peptideLabRoutine Hormone disorder Expected: 04/12/2025 (Approximate), Expires: 04/12/2026documented as of this encounter Visit Diagnoses Diagnosis Hormone disorder Unspecified endocrine disorder documented in this encounter Care Teams Team MemberRelationshipSpecialtyStart DateEnd Date Shae Lora MD [facility] [place] [phone] PCP - GeneralFamily Medicine01/12/24documented as of this encounter
--- OUTSIDE RECORDS SUMMARY | 2025-04-13 08:45 | XMS_ITS | Clinical Summary ---
Author Organization [facility] Address [address] [place] [address] Care Team Providers Care Break Out Man Name Role Phone Shae Lora MD Primary Care Provider [phone] Allergies Active AllergyReactionsCriticalityNoted KduuTzyibjxlBzszfnwbpifIwvhjeg14/06/2022 Medications No known medications Encounters DateTypeDepartmentCare LihaVziiovhoedy02/30/2025Telephone [facility] [address] [address] Susana Augustine LPN 03/07/2025Orders Only [facility] [address] [place] [address] Yessenia López MA 02/15/2025 11:00 AM ESTProcedure Visit [facility] [address] [place] [address] Juan Francisco Melgoza DO Well woman exam with routine gynecological exam5Clinisync Result Encounter N[facility] External Department Unsolicited Fany Hammond PA 5Bamboo flowsheet [facility] [address] [place] [address] Juan Francisco Melgoza DO from Last 3 Months Social History Tobacco UseTypesPacks/DayYears UsedDateSmoking Tobacco: Never Assessed CommentsUnknownSex and Gender InformationValueDate RecordedSex Assigned at Not on fileLegal VzjJezymg38/01/2023 8:34 PM EDTGender IdentityNot on fileSexual OrientationNot on file Last Filed Vital Signs Vital SignReadingTime TakenCommentsBlood Tmfykztf787/6802/15/2025 11:40 AM EST Pulse--Temperature--Respiratory Rate--Oxygen Saturation--Inhaled Oxygen Concentration--Qkvqph12 kg (116 lb 12.8 oz)02/15/2025 11:40 AM GFDHxfjfv699.9 cm (5' 1 )02/15/2025 11:40 AM ESTBody Mass Index22.0702/15/2025 11:40 AM EST Plan of Treatment DateTypeDepartmentCare Team (Latest Contact Info)Bugsjsjiydt98/28/2026 8:50 AM ESTOffice Visit [facility] [address] [place] [address] Jasmyne Welsh PA [address] [place] [address] Procedures Procedure NamePriorityDate/TimeAssociated DiagnosisCommentsIGP,APTIMA HPV,AGE PCLAKfueicy51/04/2025 11:30 AM EST HPV/PAP COTEST, HPXURDOVJjyebzz57/04/2025 12:00 AM ESTfrom Last 3 Months Results * IGP,APTIMA HPV,AGE GDLN (02/15/2025 11:30 AM EST)ComponentValueRef RangeTest MethodAnalysis TimePerformed AtPathologist SignatureAGE GDLN ACOG TESTINGNote. TBHComment: ?? TESTS ? RESULT ??FLAG ??UNITS ?REF RANGE ??LAB ?? Clinician Provided Cytology Information ?? Source.............Cervix;Endocervix ?? No. of containers..01 ThinPrep Vial Age Algo ACOG Hemalatha... ??30-65 ? 01 ?FLAG LEGEND: ?L-Low Normal,H-High Normal,LL-Alert Low,HH-Alert High <-Panic Low,>-Panic High,A-Abnormal,AA-Critical Abnormal Performed at: 01 =G ?[facility] ?? [address] [place] ??[phone] ?? Magaly Bain MD, IGP, APTIMA HPV, RFX 16/18,45Note.TBHComment: ?? TESTS ? RESULT ??FLAG ??UNITS ?REF RANGE ??LAB DIAGNOSIS: ?02 ?? NEGATIVE FOR INTRAEPITHELIAL LESION OR MALIGNANCY. Specimen adequacy: ?02 ?? Satisfactory for evaluation. ??Endocervical and/or squamous metaplastic ?? cells (endocervical component) are present. Performed by: ? 02 ?? Jose Ibarra Eligibility Manager (ASCP) . ? 02 Note: ? Note ?02 ?? The Pap smear is a screening test designed to aid in the ?? detection of premalignant and malignant conditions of the ?? uterine cervix. ??It is not a diagnostic procedure and ?? should not be used as the sole means of detecting cervical ?? cancer. ??Both false-positive and false-negative reports do ?? occur. Test Methodology: ? Note ?02 ?? This liquid based ThinPrep(R) pap test was interpreted ?? using the [employer](R) Genius(TM) Cervical Algorithm whole ?? slide imaging system. HPV Genotype Reflex ?? Note ?02 ?? Criteria not met, HPV Genotype not performed. ?FLAG LEGEND: ?L-Low Normal,H-High Normal,LL-Alert Low,HH-Alert High <-Panic Low,>-Panic High,A-Abnormal,AA-Critical Abnormal Performed at: 02 WB ?[facility] ?? [address] [place], [place] ??[phone] ?? Magaly Bain MD, HPV APTIMANegativeNegativeTBHComment: This nucleic acid amplification test detects fourteen high- risk HPV types (16,18,31,33,35,39,45,51,52,56,58,59,66,68) without differentiation. Performed at: ??=G - [facility] [address] [facility], [place] ??[id number] Senior Controls Engineer: Magaly Bain MD, Phone: ??[phone] Performed at: ??WB - [facility] [address] [place], [place] ??[id number] Senior Controls Engineer: Magaly Bain MD, Phone: ??[phone] Specimen (Source)Anatomical Location / LateralityCollection Method / Volume Collection TimeReceived Time02/15/2025 11:30 AM EST02/15/2025 9:38 PM EST Narrative [facility] - 02/18/2025 1:08 PM EST BRUSH-SPATULA CERVIX ENDOCERVIX Authorizing ProviderResult TypeResult StatusAmy Stephany PALAB BLOOD ORDERABLES Final ResultPerforming OrganizationAddressCity/State/ZIP CodePhone Number [facility] TB * HPV/PAP COTEST, EXTERNAL (02/15/2025 12:00 AM EST) Narrative Authorizing ProviderResult TypeResult StatusAmy Stephany PALAB CYTOLOGY ORDERABLES Final ResultPerforming OrganizationAddressCity/State/ZIP CodePhone Number EXTERNAL LAB from Last 3 Months Insurance Care Teams Team MemberRelationshipSpecialtyStart DateEnd Date Shae Lora MD [address] [place] [address] P[facility] - [facility]01/12/24
[2025-04-13 10:19] LABS: Free T3 2.52 pg/mL (2.18-3.98); Glucose 97 mg/dL (74-106); Thyroid Stimulating Hormone 2.356 uIU/mL (0.358-3.740)
[2025-04-13 11:15] LABS: Ferritin 22.0 ng/mL (8.0-252.0)
[2025-04-14 06:08] LABS: Sex Horm Binding Glob, Serum 108.0 nmol/L (24.6-122.0)
[2025-04-15 12:08] LABS: Calcitriol(1,25 di-OH Vit D) 30.4 pg/mL (24.8-81.5)
[2025-04-17 16:08] LABS: Reverse T3, Serum 11.8 ng/dL (9.2-24.1)
[2025-04-18 11:08] LABS: Serotonin, Serum 110 ng/mL (31-207)
== END 2025-04-13 08:41 | disposition home or self-care (01) ==
LOC: LAB 08:43
PROVIDERS: PCP Family Medicine; Visit Provider Physician Assistant
DX: E34.9 Endocrine disorder, unspecified (principal)
CPT/HCPCS: 36415; 82530; 82627; 82652; 82670; 82679; 82728; 82947; 83036; 83525; 84144; 84260; 84270; 84402; 84403; 84432; 84436; 84439; 84443; 84481; 84482; 84681; 86376; 86800